=== PATIENT | female | born 1960 | race Caucasian/White ===

== ENCOUNTER 2018-10-17 10:52 | Day surgery (SDC) | payer BC ==
[~2018-10-17 10:52] MED LIST: Lactated Ringers 1,000 ML IV SCH
--- NOTE | 2018-10-17 12:51 | PCM.PREANE ---
Preanesthetic Assessment - Anesthesia/Transfusion/Family Hx Anesthesia History: Prior Anesthesia Without Reaction Family History of Anesthesia Reaction: No Transfusion History: No Prior Transfusion(s) Intubation History: Unknown - Review of Systems General: No Symptoms Pulmonary: No Symptoms Cardiovascular: No Symptoms Gastrointestinal: No Symptoms Neurological: No Symptoms Other: Reports: None - Physical Assessment O2 Sat by Pulse Oximetry: 98 Respiratory Rate: 16 Vital Signs: Last Vital Signs Temp 37.1 C 10/17/18 11:20 Pulse 59 L 10/17/18 11:20 Resp 16 10/17/18 11:20 BP 122/66 10/17/18 11:20 Pulse Ox 98 10/17/18 11:20 Height: 1.63 m Weight: 81.193 kg ASA Class: 3 Mental Status: Alert & Oriented x3 Airway Class: Mallampati = 2 Dentition: Reports: Ravenden(s) (right and left upper back)) Thyro-Mental Finger Breadths: 3 Mouth Opening Finger Breadths: 2 ROM/Head Extension: Full Lungs: Clear to Auscultation, Normal Respiratory Effort Cardiovascular: Regular Rate, Regular Rhythm - Allergies Allergies/Adverse Reactions: Allergies Allergy/AdvReac Type Severity Reaction Status Date / Time aspirin [From Percodan] Allergy Nausea and Verified 10/11/18 12:28 Vomiting oxycodone HCl [From Percodan] Allergy Nausea and Verified 10/11/18 12:28 Vomiting oxycodone terephthalate Allergy Nausea and Verified 10/11/18 12:28 [From Percodan] Vomiting Sulfa (Sulfonamide Allergy Rash Verified 10/11/18 12:28 Antibiotics) sulfamethoxazole Allergy Rash Verified 10/11/18 12:28 [From Bactrim] trimethoprim [From Bactrim] Allergy Rash Verified 10/11/18 12:28 - Blood Blood Available: No - Anesthesia Plan Pre-Op Medication Ordered: None - Acknowledgements Anesthesia Type Planned: MAC Pt an Appropriate Candidate for the Planned Anesthesia: Yes Alternatives and Risks of Anesthesia Discussed w Pt/Guardian: Yes Pt/Guardian Understands and Agrees with Anesthesia Plan: Yes PreAnesthesia Questionnaire HEENT History: Reports: None Cardiovascular History: Reports: High Cholesterol, Other (See Below) (abnormal thalium stress test 2 years ago, sent to [facility] were she got cardiac clearance ) Respiratory History: Reports: Sleep Apnea Other Respiratory History: does not use CPAP Gastrointestinal History: Reports: Colon Polyp (3 years ago), GERD Genitourinary History: Reports: None 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: Musculoskeletal History: Reports: None Neurological History: Reports: None Psychiatric History: Reports: Anxiety, Depression Endocrine/Metabolic History: Reports: Diabetes, Type II, Obesity/BMI 30+ Hematologic History: Reports: None Immunologic History: Reports: None Oncologic (Cancer) History: Reports: None Dermatologic History: Reports: Other (See Below) Other Dermatologic History: dermatitis on hands - Past Surgical History Head Surgeries/Procedures: Reports: None HEENT Surgical History: Reports: None Cardiovascular Surgical History: Reports: None Respiratory Surgical History: Reports: None GI Surgical History: Reports: Cholecystectomy, Colonoscopy Female Surgical History: Reports: Section, D&C, Other (See Below) Other Female Surgeries/Procedures: exc. of vaginal cyst x3 Endocrine Surgical History: Reports: None Neurological Surgical History: Reports: None Musculoskeletal Surgical History: Reports: None Dermatological Surgical History: - SUBSTANCE USE Smoking Status *Q: Former Smoker Tobacco Use Within Last Twelve Months: No Recreational Drug Use History: No - HOME MEDS Home Medications: Home Meds Canagliflozin [Invokana] 300 mg PO DAILY 09/25/15 [History] metFORMIN HCl [Metformin HCl ER] 2 tab PO BID 09/25/15 [History] Aspirin [Adult Low Dose Aspirin EC] 81 mg PO DAILY 10/11/18 [History] Betamethasone Dipropionate [Diprosone 0.05% Crm] 1 applic TOP BID PRN 10/11/18 [ History] Escitalopram [Lexapro] 10 mg PO DAILY 10/11/18 [History] Estradiol [Estrace 0.01% Vaginal Crm] 1 applic VAG ASDIRECTED 10/11/18 [History] Hydrocortisone Acetate [Anusol-Hc] 1 supp RECTAL ASDIRECTED PRN 10/11/18 [ History] Lansoprazole [Prevacid 24Hr] 1 tab PO DAILY 10/11/18 [History] Rosuvastatin Calcium 10 mg PO DAILY 10/11/18 [History] buPROPion HCl [Wellbutrin Xl] 150 mg PO DAILY 10/11/18 [History] - CURRENT (IN HOUSE) MEDS Current Meds: Current Medications Lactated Ringer's (Ringers, Lactated) 1,000 mls @ 125 mls/hr IV ASDIRECTED FORREST Last Admin: 10/17/18 12:11 Dose: 125 mls/hr
[2018-10-17] MEDS ORDERED: Lidocaine 2% 5 ML SDV ONE (13:38)
[2018-10-17] MEDS ORDERED: Midazolam 1 MG/ML 2 ML SDV ONE (13:38)
[2018-10-17] MEDS ORDERED: fentaNYL 100 MCG/2 ML SDV ONE (13:38)
[2018-10-17] MEDS ORDERED: Propofol 200 MG/20 ML SDV ONE (13:39)
--- NOTE | 2018-10-17 14:40 | PCM.OPNOTE ---
- General Post-Op/Procedure Note Date of Surgery/Procedure: 10/17/18 Operative Procedure(s): Colonoscopy Pre Op Diagnosis: Personal history of colon polyps. Family history of colon cancer. Post-Op Diagnosis: Pancolonic diverticulosis Anesthesia Technique: MAC (ASA III) Primary Surgeon: Lucho Oates Condition: Good Free Text/Narrative:: DICTATION [id number] CPT CODE [id number]
[2018-10-17] MEDS ORDERED: Lactated Ringers 1,000 ML IV SCH (14:45)
[2018-10-17 15:14] VITALS: BP 127/68
--- NOTE | 2018-10-17 21:37 | OR ---
SURGEON: Lucho Oates M.D. DATE OF PROCEDURE: 10/17/2018 OPERATION PERFORMED: Colonoscopy ANESTHESIA: MAC. ASA CLASSIFICATION: III. PREOPERATIVE DIAGNOSES: 1. Personal history of colon polyps. 2. Family history of colon cancer. 3. Pancolonic diverticulosis. POSTOPERATIVE DIAGNOSES: 1. Poor prep. 2. No evidence of neoplasia. DESCRIPTION OF PROCEDURE: The patient was taken to the endoscopy room and positioned on the endoscopy table in the left lateral decubitus position. Time-out was called for appropriate identification of the patient and procedure. Monitored anesthesia care was provided. The colonoscope was inserted into the rectum and immediately there was a large amount of mucousy stool. I was able to maneuver the colonoscope slowly through this area and ultimately advanced the colonoscope to the cecum, which was identified by internal landmarks and external pressure. Suffice it to say that the quality of the prep improved only slightly as we moved more proximally. Once the colonoscope was inserted to the cecum, it was retroflexed to visualize the ascending colon from below, then straightened and slowly withdrawn. The cecum, ascending colon, hepatic flexure, transverse colon, splenic flexure, descending colon, sigmoid colon, and rectum were visualized; however, again the prep was poor and certainly a small polyp could be missed. Diverticular changes are noted, particularly in the proximal colon. I did not see any large polyps noted. I see any evidence of an obstructing neoplasm nor any narrowing or stricturing of the colon as the scope was withdrawn. Once the colonoscope was withdrawn to the rectum, it was retroflexed to visualize the anal orifice from above. Again, a large amount of mucousy stool was present, but no tumors or polyps were seen and there were no acute hemorrhoidal changes. The colonoscope was then straightened, the rectum aspirated, and the colonoscope removed. The patient did tolerate the procedure well and was taken to recovery room in stable condition. MARGARITA / JOSEMANUEL /[id number]
== END 2018-10-17 15:30 | disposition home or self-care (01) ==
LOC: MW.SDS 10:52
PROVIDERS: ATTEND Surgery
DX: Z12.11 Encounter for screening for malignant neoplasm of colon (principal); K57.30 Diverticulosis of large intestine without perforation or abscess without bleeding; E11.9 Type 2 diabetes mellitus without complications; E66.9 Obesity, unspecified; Z68.30 Body mass index [BMI] 30.0-30.9, adult; E78.00 Pure hypercholesterolemia, unspecified; F32.9 Major depressive disorder, single episode, unspecified; G47.33 Obstructive sleep apnea (adult) (pediatric); Z99.89 Dependence on other enabling machines and devices; Z87.891 Personal history of nicotine dependence; Z86.010 Personal history of colon polyps; Z79.84 Long term (current) use of oral hypoglycemic drugs; Z79.899 Other long term (current) drug therapy; Z88.1 Allergy status to other antibiotic agents; Z88.5 Allergy status to narcotic agent; Z88.2 Allergy status to sulfonamides; Z80.0 Family history of malignant neoplasm of digestive organs
CPT/HCPCS: 45378; 82962; J2001; J2250; J2704; J7120; J3010

== ENCOUNTER 2020-02-02 11:12 | Day surgery (SDC) | payer BC ==
--- NOTE | 2020-02-02 11:42 | PCM.PREANE ---
Preanesthetic Assessment - Anesthesia/Transfusion/Family Hx Anesthesia History: Prior Anesthesia Without Reaction Transfusion History: No Prior Transfusion(s) Intubation History: Unknown - Review of Systems General: No Symptoms Pulmonary: No Symptoms Cardiovascular: No Symptoms Gastrointestinal: No Symptoms Neurological: No Symptoms Other: Reports: None - Physical Assessment NPO Status Date: 02/01/20 Height: 5 ft 4 in Weight: 81.193 kg ASA Class: 2 Mental Status: Alert & Oriented x3 Airway Class: Mallampati = 2 Dentition: Reports: Normal Dentition ROM/Head Extension: Full Lungs: Clear to Auscultation, Normal Respiratory Effort Cardiovascular: Regular Rate, Regular Rhythm - Allergies Allergies/Adverse Reactions: Allergies Allergy/AdvReac Type Severity Reaction Status Date / Time oxycodone HCl [From Percodan] Allergy Nausea and Verified 01/30/20 10:46 Vomiting oxycodone terephthalate Allergy Nausea and Verified 01/30/20 10:46 [From Percodan] Vomiting Sulfa (Sulfonamide Allergy Rash Verified 01/30/20 10:46 Antibiotics) sulfamethoxazole Allergy Rash Verified 01/30/20 10:46 [From Bactrim] trimethoprim [From Bactrim] Allergy Rash Verified 01/30/20 10:46 - Blood Blood Available: No - Anesthesia Plan Pre-Op Medication Ordered: None - Acknowledgements Anesthesia Type Planned: General Anesthesia (tiva) Pt an Appropriate Candidate for the Planned Anesthesia: Yes Alternatives and Risks of Anesthesia Discussed w Pt/Guardian: Yes Pt/Guardian Understands and Agrees with Anesthesia Plan: Yes Additional Comments: PMH: denies CAD-hx unclear about why she had stress test and what metal 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 afterwards, LUCA-non compliant with CPAP-advised to use it for the next 5 nights, RLS, DM2 PLAN: tiva PreAnesthesia Questionnaire HEENT History: Reports: None Cardiovascular History: Reports: High Cholesterol Respiratory History: Reports: Sleep Apnea Other Respiratory History: never uses CPAP Gastrointestinal History: Reports: Colon Polyp, GERD Genitourinary History: Reports: None 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: Musculoskeletal History: Reports: None Neurological History: Reports: None Psychiatric History: Reports: Anxiety, Depression Endocrine/Metabolic History: Reports: Diabetes, Type II Hematologic History: Reports: None Immunologic History: Reports: None Oncologic (Cancer) History: Reports: None Dermatologic History: Reports: Eczema Other Dermatologic History: rash on hands - Past Surgical History Head Surgeries/Procedures: Reports: None GI Surgical History: Reports: Cholecystectomy, Colonoscopy Female Surgical History: Reports: Section Other Female Surgeries/Procedures: x2 Musculoskeletal Surgical History: Reports: Other (See Below) Other Musculoskeletal Surgeries/Procedures:: removal of cysts from torso - SUBSTANCE USE Smoking Status *Q: Current Every Day Smoker Tobacco Use Within Last Twelve Months: Vaping Recreational Drug Use History: No - HOME MEDS Home Medications: Home Meds metFORMIN HCl [Metformin HCl ER] 1,000 mg PO BID 09/25/15 [History] Aspirin [Adult Low Dose Aspirin EC] 81 mg PO DAILY 10/11/18 [History] Betamethasone Dipropionate [Diprosone 0.05% Crm] 1 applic TOP BID PRN 10/11/18 [History] Escitalopram [Lexapro] 10 mg PO DAILY 10/11/18 [History] Hydrocortisone Acetate [Anusol-Hc] 1 supp RECTAL ASDIRECTED PRN 10/11/18 [History] Lansoprazole [Prevacid 24Hr] 15 mg PO ASDIRECTED 10/11/18 [History] Rosuvastatin Calcium 10 mg PO DAILY 10/11/18 [History] buPROPion HCL [Wellbutrin Xl] 150 mg PO DAILY 10/11/18 [History] estradioL [Estrace 0.01% Vaginal Crm] 1 applic VAG ASDIRECTED 10/11/18 [History] Calcium Carbonate/Vitamin D3 [Calcium 500-Vit D3 400 Chew Tb] 1 tab PO DAILY 01/30/20 [History] Empagliflozin [Jardiance] 25 mg PO DAILY 01/30/20 [History] Iron Polysaccharides Complex [Ferrex 150] 150 mg PO ASDIRECTED 01/30/20 [History] - CURRENT (IN HOUSE) MEDS Current Meds: Current Medications Lactated Ringer's (Ringers, Lactated) 1,000 mls @ 125 mls/hr IV ASDIRECTED [facility]
[2020-02-02] MEDS ORDERED: Lidocaine 2% 5 ML SDV ONE (12:55)
[2020-02-02] MEDS ORDERED: Propofol 200 MG/20 ML SDV ONE ×2 (12:56→13:25)
[2020-02-02] MEDS ORDERED: fentaNYL 100 MCG/2 ML SDV IVPUSH PRN (13:13)
[2020-02-02] MEDS ORDERED: EPINEPHrine 1:10,000 1 MG/10 ML Syringe IVPUSH PRN (13:13)
[2020-02-02] MEDS ORDERED: 50% Dextrose in Water 50 ML Syringe IVPUSH PRN (13:13)
[2020-02-02] MEDS ORDERED: Atropine 0.1 MG/ML 10 ML Syringe IVPUSH PRN ×2 (13:13)
[2020-02-02] MEDS ORDERED: Naloxone 0.4 MG/ML Syringe IVPUSH PRN (13:13)
[2020-02-02] MEDS ORDERED: Albuterol 0.083% 2.5 MG/3 ML Neb Soln NEB PRN (13:13)
--- NOTE | 2020-02-02 13:51 | PCM.OPNOTE ---
- General Post-Op/Procedure Note Date of Surgery/Procedure: 02/02/20 Operative Procedure(s): Esophagogastroduodenoscopy with gastric biopsies and gastric polypectomy. Colonoscopy. Pre Op Diagnosis: Iron deficiency anemia. Vitamin B-12 deficiency. Plica and adults. Family history of colon cancer. Family history of colon polyps. Post-Op Diagnosis: Chronic gastritis. Gastric polyps. No evidence of colonic neoplasia. Anesthesia Technique: MAC (ASA II) Primary Surgeon: Lucho Oates Bottling Supervisor: Ludmila Coker Condition: Good Free Text/Narrative:: DICTATION [id number] CPT CODE [id number]
[2020-02-02] MEDS ORDERED: Lactated Ringers 1,000 ML IV SCH (14:00)
--- NOTE | 2020-02-02 14:32 | PCM.POSTAN ---
POST ANESTHESIA ASSESSMENT - MENTAL STATUS Mental Status: Alert, Oriented - VITAL SIGNS Vital Signs: Last Vital Signs Temp 96.8 F L 02/02/20 13:47 Pulse 64 02/02/20 13:55 Resp 12 02/02/20 13:55 BP 113/66 02/02/20 13:55 Pulse Ox 98 02/02/20 13:55 - RESPIRATORY Respiratory Status: Respiratory Rate WNL, Airway Patent, O2 Saturation Stable - CARDIOVASCULAR CV Status: Pulse Rate WNL, Blood Pressure Stable - GASTROINTESTINAL GI Status: No Symptoms - POST OP HYDRATION Hydration Status: Adequate & Stable
--- NOTE | 2020-02-02 14:33 | PCM48HPAN ---
Post Anesthesia Note - EVALUATION WITHIN 48HRS OF ANESTHETIC Vital Signs in Normal Range: Yes Patient Participated in Evaluation: Yes Respiratory Function Stable: Yes Airway Patent: Yes Cardiovascular Function Stable: Yes Hydration Status Stable: Yes Pain Control Satisfactory: Yes Nausea and Vomiting Control Satisfactory: Yes Mental Status Recovered: Yes Vital Signs: Last Vital Signs Temp 96.8 F L 02/02/20 13:47 Pulse 64 02/02/20 13:55 Resp 12 02/02/20 13:55 BP 113/66 02/02/20 13:55 Pulse Ox 98 02/02/20 13:55
[2020-02-02 15:47] VITALS: BP 119/57; PULSE 62
--- NOTE | 2020-02-02 17:43 | OR ---
SURGEON: Lucho Oates M.D. DATE OF PROCEDURE: 02/02/2020 OPERATION PERFORMED: Esophagogastroduodenoscopy with biopsy. PRIMARY SURGEON: Lucho Oates MD PROJECT PLANNER: RALPH Shea student. ANESTHESIA: MAC. ASA CLASSIFICATION: II. PREOPERATIVE DIAGNOSES: 1. Iron deficiency anemia. 2. Pica. POSTOPERATIVE DIAGNOSES: 1. Mild chronic gastritis. 2. Hiatal hernia. DESCRIPTION OF PROCEDURE: The patient was taken to the endoscopy room and positioned on the endoscopy table in the left lateral decubitus position. Time-out was called for appropriate identification of the patient and procedure. Monitored anesthesia care was provided. The bite block was placed between the patient's teeth. The gastroscope was inserted through the bite block into the oropharynx and advanced without difficulty through the esophagus and stomach into the duodenum where examination was now carried out in a retrograde fashion. The duodenum showed no acute inflammatory changes or ulcerations. The stomach did show mild chronic gastritis and a few gastric polyps were also identified proximally. These were biopsied separately. Antral biopsies were obtained to look for the presence of Helicobacter pylori. No acute ulcerations were noted and there was no significant acute severe gastritis. The gastroscope was retroflexed to visualize the proximal stomach. The patient did have a hiatal hernia that could be seen from below as well as from above. A few small gastric polyps were identified and these were biopsied for separate histologic analysis. The scope was then withdrawn through the hiatal hernia. The GE junction itself was well defined and showed no acute inflammatory changes or ulcerations. The esophagus itself demonstrated good contractility. No mid or proximal lesions were identified. As the scope was withdrawn, the vocal cords were briefly visualized and noted to move symmetrically. The gastroscope was then removed with the patient having tolerated that portion of the procedure well. Following colonoscopy, she was taken to recovery room in stable condition. MARGARITA / JOSEMANUEL /[id number] MTDFlavia
--- NOTE | 2020-02-02 18:03 | OR ---
SURGEON: Lucho Oates M.D. DATE OF PROCEDURE: 02/02/2020 OPERATION PERFORMED: Colonoscopy. PRIMARY SURGEON: Lucho Oates MD ANESTHESIA: MAC. ASA CLASSIFICATION: II. PATTERN REPAIR PERSON: RALPH Shea student. PREOPERATIVE DIAGNOSES: 1. Iron deficiency anemia. 2. B12 deficiency. 3. Pica. 4. Family history of colon cancer. 5. Family history of colon polyps. DESCRIPTION OF PROCEDURE: Following esophagogastroduodenoscopy, the patient was maintained in the left lateral decubitus position. The colonoscope was inserted into the rectum and advanced with moderate difficulty to the cecum. It was very difficult to maneuver the colonoscope through, but I was able to advance the scope to the proximal ascending colon visualizing the cecum straight ahead of me. Despite multiple maneuvers, I was never able to retroflex the colonoscope. The scope was then straightened and slowly withdrawn. The patient did have a moderate amount of mucus. This could be irrigated and aspirated. The cecum, ascending colon, hepatic flexure, transverse colon, splenic flexure, descending colon, sigmoid colon, and rectum were fairly well visualized. No tumors, polyps, diverticula, or angiodysplastic changes were noted anywhere in the lower gastrointestinal tract. Once the colonoscope was withdrawn to the rectum, it was retroflexed to visualize the anal orifice from above. Again, no tumors or polyps were seen and there were no acute hemorrhoidal changes. The colonoscope was then straightened, the rectum aspirated, and colonoscope removed. The patient tolerated the procedure well and was taken to recovery room in stable condition. MARGARITA / JOSEMANUEL /[id number] IRA
== END 2020-02-02 14:40 | disposition home or self-care (01) ==
LOC: MW.SDS 11:12
PROVIDERS: ATTEND Surgery
DX: K29.50 Unspecified chronic gastritis without bleeding (principal); D50.9 Iron deficiency anemia, unspecified; K44.9 Diaphragmatic hernia without obstruction or gangrene; K31.7 Polyp of stomach and duodenum; F50.89 Other specified eating disorder; E53.8 Deficiency of other specified B group vitamins; E11.9 Type 2 diabetes mellitus without complications; E78.00 Pure hypercholesterolemia, unspecified; K21.9 Gastro-esophageal reflux disease without esophagitis; F41.9 Anxiety disorder, unspecified; F32.9 Major depressive disorder, single episode, unspecified; E78.5 Hyperlipidemia, unspecified; G47.30 Sleep apnea, unspecified; E66.9 Obesity, unspecified; Z79.84 Long term (current) use of oral hypoglycemic drugs; Z79.82 Long term (current) use of aspirin; Z79.899 Other long term (current) drug therapy; Z80.0 Family history of malignant neoplasm of digestive organs; Z83.71 Family history of colonic polyps; Z68.30 Body mass index [BMI] 30.0-30.9, adult; Z88.6 Allergy status to analgesic agent; Z88.2 Allergy status to sulfonamides; Z86.010 Personal history of colon polyps; Z87.891 Personal history of nicotine dependence
CPT/HCPCS: 43239; 45378; J2001; J2704; J7120

== ENCOUNTER 2025-07-02 08:54 | Day surgery (SDC) | payer MEDICARE, BC ==
[2025-07-02] MEDS: Lactated Ringers 1,000 ML IV SCH (09:25)
[2025-07-02] MEDS ORDERED: Propofol 200 MG/20 ML SDV ONE ×2 (09:59→10:27)
[2025-07-02] MEDS ORDERED: Lactated Ringers 1,000 ML IV SCH (10:45)
[2025-07-02 12:16] VITALS: BP 110/58; PULSE 63
== END 2025-07-02 11:35 | disposition home or self-care (01) ==
LOC: MW.SDS 08:54
PROVIDERS: ATTEND Surgery
DX: Z12.11 Encounter for screening for malignant neoplasm of colon (principal); K57.30 Diverticulosis of large intestine without perforation or abscess without bleeding; E11.9 Type 2 diabetes mellitus without complications; Z86.0101 Personal history of adenomatous and serrated colon polyps; Z87.891 Personal history of nicotine dependence; Z80.0 Family history of malignant neoplasm of digestive organs; Z79.84 Long term (current) use of oral hypoglycemic drugs; Z79.899 Other long term (current) drug therapy
CPT/HCPCS: G0105; J2003; J2704; J7120; 00812